=== PATIENT | female | born 1975 | race Caucasian/White ===

== ENCOUNTER 2016-11-21 13:47 | Emergency (ER) | payer MEDICAID, OTHER ==
[~2016-11-21] VITALS: Ht 167.6 cm; Wt 175.0 kg
[~2016-11-21 13:47] MED LIST: ACET-1757 PO; DIPH25CA61 PO; HYDR-3241 PO; PROM25TA10 PO
[2016-11-21] MEDS ORDERED: ALBUTEROL/IPRATROPIUM 2.5MG/0.5MG, 3 ML NPPB ONE (14:00)
[2016-11-21] MEDS ORDERED: ASPIRIN 81 MG TABLET CHEW PO ONE (14:00)
[2016-11-21] MEDS ORDERED: SODIUM CHLORIDE FLUSH 10ML SYR IVF ONE (14:00)
[2016-11-21] MEDS ORDERED: NITROGLYCERIN SINGLE TAB 0.4 MG SL ONE ×2 (14:14→14:42)
[2016-11-21] MEDS ORDERED: ASPIRIN 81 MG TABLET CHEW ONE (14:14)
[2016-11-21] MEDS ORDERED: ALBUTEROL/IPRATROPIUM 2.5MG/0.5MG, 3 ML ONE (14:15)
[2016-11-21] MEDS: NITROGLYCERIN SINGLE TAB 0.4 MG SL PRN ×2 (14:15→14:42)
[2016-11-21] MEDS ORDERED: SODIUM CHLORIDE 0.9%, 500ML IVBOLUS ONE ×2 (14:30→15:30)
[2016-11-21 14:42] LABS: ASPARTATE AMINO TRANSFERASE 6 U/L (15-37); BLOOD UREA NITROGEN 11 mg/dL (7-18)
[2016-11-21 14:44] LABS: IS PT STATUS REG ER OR PRE ER? YES
[2016-11-21 16:13] VITALS: BP 134/86
[2016-11-21 16:15] LABS: RAPID INFLUENZA A Negative (Negative); RAPID INFLUENZA B Negative (Negative)
[2016-11-21] MEDS ORDERED: KETOROLAC 30 MG/1 ML ONE (17:16)
[2016-11-21] MEDS ORDERED: KETOROLAC 30 MG/1 ML IVPush ONE (17:30)
== END 2016-11-21 17:23 | disposition home or self-care (01) ==
LOC: ED 14:35
DX: R07.2 Precordial pain (principal); B34.9 Viral infection, unspecified; J44.1 Chronic obstructive pulmonary disease with (acute) exacerbation; F15.10 Other stimulant abuse, uncomplicated; E11.9 Type 2 diabetes mellitus without complications; G40.909 Epilepsy, unspecified, not intractable, without status epilepticus; F17.210 Nicotine dependence, cigarettes, uncomplicated; Z86.73 Personal history of transient ischemic attack (TIA), and cerebral infarction without residual deficits; Z88.0 Allergy status to penicillin; Z88.6 Allergy status to analgesic agent; Z87.442 Personal history of urinary calculi
CPT/HCPCS: 36415; 71010; 80053; 83880; 84484; 85025; 85379; 85610; 85730; 87400; 93005; 94640; 96360; 99285; J7040; J7620

== ENCOUNTER 2018-01-08 16:41 | Observation (INO) | payer MEDICAID, OTHER ==
[~2018-01-08] VITALS: Ht 167.6 cm; Wt 170.0 kg
[2018-01-08 17:36] LABS: BASOPHILS # (AUTO) 0.03 x10^3/uL (0-0.1); BASOPHILS % (AUTO) 0 % (0-1); EOSINOPHILS # (AUTO) 0.08 x10^3/uL (0-0.4); EOSINOPHILS % (AUTO) 1 % (1-7); LYMPHOCYTES # (AUTO) 1.03 x10^3/uL (1-3.4); LYMPHOCYTES % (AUTO) 13 % (22-44); MD NO; MEAN CORPUSCULAR HGB CONC 32.4 g/dL (32.4-35.8); MEAN PLATELET VOLUME 9.7 fL (7.4-10.4); MONOCYTES # (AUTO) 0.47 x10^3/uL (0.2-0.8); MONOCYTES % (AUTO) 6 % (2-9); NEUTROPHILS # (AUTO) 6.48 x10^3/uL (1.8-6.8); NEUTROPHILS % (AUTO) 80 % (42-75); PLATELET COUNT 308 x10^3/uL (130-400); RED BLOOD COUNT 4.67 x10^6/uL (3.82-5.3); RED CELL DISTRIBUTION WIDTH 16.9 % (9.6-15.2)
[2018-01-08 17:48] LABS: ALBUMIN 3.1 g/dL (3.4-5.0); ANION GAP 5 mmol/L (5-15); CALCIUM 8.5 mg/dL (8.5-10.1); CHLORIDE 112 mmol/L (98-107); SALICYLATE LEVEL 2.9 mg/dL (2.8-20.0)
[2018-01-08 17:53] LABS: ALANINE AMINOTRANSFERASE 15 U/L (12-78); ALKALINE PHOSPHATASE 95 U/L (45-117); BILIRUBIN,TOTAL 0.3 mg/dL (0.2-1.0); CREATININE 1.24 mg/dL (0.55-1.02); TOTAL PROTEIN 7.2 g/dL (6.4-8.2)
[2018-01-08 17:55] LABS: ACETAMINOPHEN < 2 mcg/mL (10-30)
[2018-01-08 19:50] LABS: AMPHETAMINE SCREEN, URINE Positive (Negative); BARBITURATE SCREEN, URINE Negative (Negative); BENZODIAZEPINE SCREEN, URINE Negative (Negative); CANNABINOID SCREEN, URINE Positive (Negative); COCAINE SCREEN, URINE Negative (Negative); METHADONE SCREEN, URINE Negative (Negative); OPIATE SCREEN, URINE Negative (Negative)
[2018-01-08] MEDS ORDERED: ACETAMINOPHEN 325 MG TABLET PO PRN (20:00)
[2018-01-08] MEDS ORDERED: LORazepam 1MG TABLET PO PRN (20:00)
[2018-01-08] MEDS ORDERED: ONDANSETRON ODT 4 MG PO PRN (20:00)
[2018-01-08 21:00] VITALS: BP 134/97
[2018-01-09 07:30] VITALS: BP 129/78
[2018-01-09 19:52] VITALS: BP 132/88
[2018-01-10 08:00] VITALS: BP 131/80
[2018-01-10] MEDS: ENOXAPARIN 40 MG/0.4 ML SQ SCH (10:00)
[2018-01-10 19:41] VITALS: BP 159/115
[2018-01-10] MEDS: TEMAZEPAM 15 MG CAPSULE PO PRN (22:04)
[2018-01-11 05:48] LABS: CHLORIDE 107 mmol/L (98-107)
[2018-01-11 05:56] LABS: ANION GAP 7 mmol/L (5-15); CALCIUM 8.8 mg/dL (8.5-10.1); CREATININE 0.83 mg/dL (0.55-1.02)
[2018-01-11] MEDS ORDERED: hydrALAzine 20 MG/ML, 1ML IV PRN (06:30)
[2018-01-11 08:23] VITALS: BP 155/89
[2018-01-11] MEDS ORDERED: AMLODIPINE 5 MG TABLET PO SCH (09:00)
[2018-01-11] MEDS: ENOXAPARIN 40 MG/0.4 ML SQ SCH (09:00)
[2018-01-11] MEDS: LORazepam 1MG TABLET PO PRN ×4 (09:38→22:40)
[2018-01-11] MEDS: TEMAZEPAM 15 MG CAPSULE PO PRN (19:44)
[2018-01-11 19:50] VITALS: BP 140/102
[2018-01-12 07:29] VITALS: BP 126/95
[2018-01-12] MEDS: AMLODIPINE 5 MG TABLET PO SCH (08:28)
[2018-01-12] MEDS: LORazepam 1MG TABLET PO PRN ×3 (09:02→19:51)
[2018-01-12] MEDS: ENOXAPARIN 40 MG/0.4 ML SQ SCH (09:26)
[2018-01-12] MEDS: LURASIDONE 20 MG TABLET PO SCH (16:43)
[2018-01-12 19:29] VITALS: BP 151/108
[2018-01-12] MEDS: TEMAZEPAM 15 MG CAPSULE PO PRN (19:51)
[2018-01-13] MEDS ORDERED: DIVALPROEX 500 MG TAB.ER.24H PO SCH ×2 (09:00→21:00)
[2018-01-13] MEDS: AMLODIPINE 5 MG TABLET PO SCH (09:05)
[2018-01-13] MEDS: LISINOPRIL 20 MG TABLET PO SCH (09:05)
[2018-01-13 09:16] VITALS: BP 125/83
[2018-01-13] MEDS ORDERED: DIVALPROEX 500 MG TAB.ER.24H PO ONE (09:30)
[2018-01-13] MEDS: ENOXAPARIN 40 MG/0.4 ML SQ SCH (10:14)
[2018-01-13] MEDS: LORazepam 1MG TABLET PO PRN ×2 (14:32→20:22)
[2018-01-13] MEDS: LURASIDONE 20 MG TABLET PO SCH (17:11)
[2018-01-13 19:53] VITALS: BP 123/90
[2018-01-13] MEDS: TEMAZEPAM 15 MG CAPSULE PO PRN (20:22)
[2018-01-14] MEDS: AMLODIPINE 5 MG TABLET PO SCH (08:09)
[2018-01-14] MEDS: LISINOPRIL 20 MG TABLET PO SCH (08:09)
[2018-01-14] MEDS: ENOXAPARIN 40 MG/0.4 ML SQ SCH (08:11)
[2018-01-14 08:30] VITALS: BP 118/82
[2018-01-14] MEDS ORDERED: DIVA500T4 PO (10:56)
[2018-01-14] MEDS ORDERED: AMLO5TAB2 PO (10:56)
[2018-01-14] MEDS ORDERED: LURA20TA PO (10:56)
== END 2018-01-14 11:33 | disposition home or self-care (01) ==
LOC: ED 20:28 → 2N 20:42
PROVIDERS: ADMIT Internal Medicine; ATTEND Internal Medicine
DX: R45.851 Suicidal ideations (principal); E11.9 Type 2 diabetes mellitus without complications; E66.01 Morbid (severe) obesity due to excess calories; F12.20 Cannabis dependence, uncomplicated; F15.20 Other stimulant dependence, uncomplicated; F17.210 Nicotine dependence, cigarettes, uncomplicated; F31.32 Bipolar disorder, current episode depressed, moderate; F41.9 Anxiety disorder, unspecified; G40.909 Epilepsy, unspecified, not intractable, without status epilepticus; I10 Essential (primary) hypertension; J44.9 Chronic obstructive pulmonary disease, unspecified; Z59.0 Homelessness; Z86.73 Personal history of transient ischemic attack (TIA), and cerebral infarction without residual deficits; Z87.442 Personal history of urinary calculi
CPT/HCPCS: 36415; 80048; 80053; 80307; 80329; 84703; 85025; 99285; G0378; G0480